=== PATIENT | male | born 1975 ===

== ENCOUNTER 2024-01-14 12:27 | Emergency (ER) | payer OTHER | END 2024-01-14 13:25 | LOC: ERS 12:27 → EEVIPCON 12:27 → ERS 13:25 | DX: S46.212A Strain of muscle, fascia and tendon of other parts of biceps, left arm, initial encounter (principal); M54.12 Radiculopathy, cervical region; I10 Essential (primary) hypertension; E78.5 Hyperlipidemia, unspecified; V89.2XXA Person injured in unspecified motor-vehicle accident, traffic, initial encounter; Z79.899 Other long term (current) drug therapy; Z55.6 Problems related to health literacy | CPT/HCPCS: 99283 ==